=== PATIENT | male | born 1935 | race Asian ===

== ENCOUNTER 2017-08-22 19:34 | Inpatient (IN) | payer MEDICARE ==
[~2017-08-22] VITALS: Ht 160 cm; Wt 56.9 kg
[2017-08-22] MEDS ORDERED: BUDE10.2 INH (20:14)
[2017-08-22] MEDS ORDERED: LISI-167 PO (20:14)
[2017-08-22] MEDS ORDERED: ALBUTEROL/IPRATROPIUM 2.5MG/0.5MG, 3 ML ONE ×2 (20:28→20:43)
[2017-08-22] MEDS ORDERED: SODIUM CHLORIDE FLUSH 10ML SYR IVF ONE (20:30)
[2017-08-22] MEDS ORDERED: ALBUTEROL/IPRATROPIUM 2.5MG/0.5MG, 3 ML NPPB ONE (20:30)
[2017-08-22 20:34] LABS: BASOPHILS # (AUTO) 0.05 x10^3/uL (0-0.1); BASOPHILS % (AUTO) 1 % (0-1); EOSINOPHILS % (AUTO) 3 % (1-7); LYMPHOCYTES # (AUTO) 1.58 x10^3/uL (1-3.4); LYMPHOCYTES % (AUTO) 15 % (22-44); MD NO; MEAN CORPUSCULAR HEMOGLOBIN 29.7 pg (27.5-34.5); MEAN CORPUSCULAR HGB CONC 32.5 g/dL (33.2-36.2); MEAN CORPUSCULAR VOLUME 91.5 fL (81-97); MEAN PLATELET VOLUME 7.9 fL (7.4-10.4); MONOCYTES # (AUTO) 0.73 x10^3/uL (0.2-0.8); MONOCYTES % (AUTO) 7 % (2-9); NEUTROPHILS # (AUTO) 7.78 x10^3/uL (1.8-6.8); NEUTROPHILS % (AUTO) 75 % (42-75); PLATELET COUNT 211 x10^3/uL (130-400); RED BLOOD COUNT 4.79 x10^6/uL (4.38-5.82); RED CELL DISTRIBUTION WIDTH 14.7 % (9.4-14.8)
[2017-08-22 20:45] LABS: ALANINE AMINOTRANSFERASE 24 U/L (12-78); ALBUMIN 3.1 g/dL (3.4-5.0); ANION GAP 10 mmol/L (5-15); CALCIUM 7.8 mg/dL (8.5-10.1); CHLORIDE 107 mmol/L (98-107)
[2017-08-22 20:49] LABS: ALKALINE PHOSPHATASE 80 U/L (45-117); BILIRUBIN,TOTAL 0.7 mg/dL (0.2-1.0); TOTAL PROTEIN 7.4 g/dL (6.4-8.2)
[2017-08-22] MEDS ORDERED: AZITHROMYCIN 500 MG in SODIUM CHLORIDE 0.9% 250 ML IV ONE (21:00)
[2017-08-22] MEDS ORDERED: CEFTRIAXONE PMX 1GM/50ML 50 ML IV ONE (21:00)
[2017-08-22] MEDS ORDERED: CEFTRIAXONE PMX 1GM/50ML 50 ML ONE (21:28)
[2017-08-22] MEDS ORDERED: ACETAMINOPHEN 325 MG TABLET PO PRN (21:30)
[2017-08-22] MEDS ORDERED: CARVEDILOL 6.25 MG TABLET PO ONE (21:30)
[2017-08-22] MEDS ORDERED: ENOXAPARIN 40 MG/0.4 ML SQ SCH (21:30)
[2017-08-22] MEDS ORDERED: ONDANSETRON 2MG/ML, 2ML IVPush PRN (21:30)
[2017-08-23] MEDS: CEFTRIAXONE PMX 1GM/50ML 50 ML IV SCH (00:20)
[2017-08-23] MEDS: SODIUM CHLORIDE 0.9% 1,000 ML IV SCH ×3 (00:20→18:14)
[2017-08-23] MEDS: methylPREDNISolone SOD SUCC 40 MG/ML IVPush SCH ×4 (00:21→19:09)
[2017-08-23] MEDS ORDERED: ALBUTEROL/IPRATROPIUM 2.5MG/0.5MG, 3 ML NPPB PRN (01:00)
[2017-08-23] MEDS: AZITHROMYCIN 500 MG in SODIUM CHLORIDE 0.9% 250 ML IV SCH ×2 (01:28→21:20)
[2017-08-23 01:31] VITALS: BP 102/53
[2017-08-23 05:32] LABS: ANION GAP 7 mmol/L (5-15); CALCIUM 7.6 mg/dL (8.5-10.1); CHLORIDE 108 mmol/L (98-107); CREATININE 1.85 mg/dL (0.7-1.3)
[2017-08-23 05:44] LABS: MEAN CORPUSCULAR HEMOGLOBIN 30.1 pg (27.5-34.5); MEAN CORPUSCULAR HGB CONC 32.9 g/dL (33.2-36.2); MEAN CORPUSCULAR VOLUME 91.6 fL (81-97); MEAN PLATELET VOLUME 7.7 fL (7.4-10.4); PLATELET COUNT 167 x10^3/uL (130-400); RED BLOOD COUNT 4.31 x10^6/uL (4.38-5.82); RED CELL DISTRIBUTION WIDTH 14.8 % (9.4-14.8)
[2017-08-23] MEDS: ASPIRIN 325 MG TABLET EC PO SCH (06:00)
[2017-08-23 06:03] LABS: MD YES
[2017-08-23 06:06] LABS: BAND#(MANUAL) 2.24 x10^3/uL; BANDS%(MANUAL) 20 % (0-7); LYMPH#(MANUAL) 0.34 x10^3/uL (1-3.4); LYMPHS% (MANUAL) 3 % (22-44); SEG#(MANUAL) 8.62 x10^3/uL (1.8-6.8); SEGS% (MANUAL) 77 % (42-75)
[2017-08-23 06:08] LABS: <PLATELET ESTIMATE> ADEQUATE; <PLT MORPHOLOGY> NORMAL PLT MORPH; <RBC MORPHOLOGY> NORMAL
[2017-08-23] MEDS: ALBUTEROL/IPRATROPIUM 2.5MG/0.5MG, 3 ML NPPB SCH ×5 (06:55→22:15)
[2017-08-23 08:02] VITALS: BP 113/63
[2017-08-23 16:09] VITALS: BP 108/62
[2017-08-23 17:31] VITALS: BP 116/52
[2017-08-23 20:16] VITALS: BP 117/64
[2017-08-23] MEDS ORDERED: FUROSEMIDE 20 MG/2 ML IV ONE (23:30)
[2017-08-24] VITALS (8 sets, daily range): BP systolic 112–154; BP diastolic 67–87
[2017-08-24] MEDS: CEFTRIAXONE PMX 1GM/50ML 50 ML IV SCH (00:36)
[2017-08-24] MEDS: ENOXAPARIN 30 MG/0.3 ML SQ SCH (00:40)
[2017-08-24] MEDS: methylPREDNISolone SOD SUCC 40 MG/ML IVPush SCH ×4 (00:40→18:23)
[2017-08-24] MEDS ORDERED: LORazepam 2 MG/ML, 1ML ONE (01:38)
[2017-08-24] MEDS ORDERED: LORazepam 2 MG/ML, 1ML IVPush ONE ×2 (02:00→02:30)
[2017-08-24] MEDS ORDERED: FUROSEMIDE 40 MG/4 ML IV ONE (03:00)
[2017-08-24] MEDS: ALBUTEROL/IPRATROPIUM 2.5MG/0.5MG, 3 ML NPPB SCH ×5 (06:00→22:25)
[2017-08-24] MEDS: ASPIRIN 325 MG TABLET EC PO SCH (09:18)
[2017-08-24 10:08] LABS: RAPID INFLUENZA A Negative (Negative); RAPID INFLUENZA B Negative (Negative)
[2017-08-24 10:37] LABS: BASOPHILS # (AUTO) 0.01 x10^3/uL (0-0.1); BASOPHILS % (AUTO) 0 % (0-1); EOSINOPHILS % (AUTO) 0 % (1-7); LYMPHOCYTES # (AUTO) 0.53 x10^3/uL (1-3.4); LYMPHOCYTES % (AUTO) 4 % (22-44); MD NO; MEAN CORPUSCULAR HEMOGLOBIN 29.8 pg (27.5-34.5); MEAN CORPUSCULAR HGB CONC 32.4 g/dL (33.2-36.2); MEAN CORPUSCULAR VOLUME 91.9 fL (81-97); MONOCYTES # (AUTO) 0.45 x10^3/uL (0.2-0.8); MONOCYTES % (AUTO) 3 % (2-9); NEUTROPHILS # (AUTO) 12.44 x10^3/uL (1.8-6.8); NEUTROPHILS % (AUTO) 93 % (42-75); PLATELET COUNT 176 x10^3/uL (130-400); RED BLOOD COUNT 4.37 x10^6/uL (4.38-5.82); RED CELL DISTRIBUTION WIDTH 14.9 % (9.4-14.8)
[2017-08-24 10:50] LABS: ALANINE AMINOTRANSFERASE 50 U/L (12-78); ALBUMIN 2.8 g/dL (3.4-5.0); ANION GAP 7 mmol/L (5-15); CALCIUM 7.4 mg/dL (8.5-10.1); CHLORIDE 111 mmol/L (98-107); CREATININE 2.41 mg/dL (0.7-1.3)
[2017-08-24 10:52] LABS: ALKALINE PHOSPHATASE 91 U/L (45-117); BILIRUBIN,TOTAL 0.3 mg/dL (0.2-1.0); TOTAL PROTEIN 6.6 g/dL (6.4-8.2)
[2017-08-24] MEDS: GUAIFENESIN 200 MG TABLET PO SCH ×3 (12:24→20:38)
[2017-08-24] MEDS ORDERED: SODIUM CHLORIDE 0.9% 1,000 ML IV SCH (12:30)
[2017-08-24] MEDS ORDERED: FUROSEMIDE 20 MG/2 ML IV ONE (17:00)
[2017-08-24] MEDS: AZITHROMYCIN 500 MG in SODIUM CHLORIDE 0.9% 250 ML IV SCH (20:38)
[2017-08-25] MEDS: ENOXAPARIN 30 MG/0.3 ML SQ SCH (00:38)
[2017-08-25] MEDS: methylPREDNISolone SOD SUCC 40 MG/ML IVPush SCH ×4 (00:38→17:35)
[2017-08-25] MEDS: CEFTRIAXONE PMX 1GM/50ML 50 ML IV SCH (00:50)
[2017-08-25 01:46] VITALS: BP 116/69
[2017-08-25] MEDS: ALBUTEROL/IPRATROPIUM 2.5MG/0.5MG, 3 ML NPPB SCH ×4 (06:00→18:55)
[2017-08-25 06:32] LABS: ANION GAP 6 mmol/L (5-15); CALCIUM 7.7 mg/dL (8.5-10.1); CHLORIDE 110 mmol/L (98-107); CREATININE 2.42 mg/dL (0.7-1.3)
[2017-08-25 06:45] VITALS: BP 117/74
[2017-08-25] MEDS: GUAIFENESIN 200 MG TABLET PO SCH ×3 (09:04→20:29)
[2017-08-25] MEDS: ASPIRIN 325 MG TABLET EC PO SCH (09:04)
[2017-08-25] MEDS ORDERED: FUROSEMIDE 40 MG/4 ML IV ONE ×2 (11:30→14:00)
[2017-08-25 12:25] VITALS: BP 137/60
[2017-08-25 13:59] LABS: MICROSCOPIC INDICATED
[2017-08-25 14:10] LABS: CULTURE INDICATED? NO
[2017-08-25] MEDS: CARVEDILOL 3.125 MG TABLET PO SCH (17:35)
[2017-08-25] MEDS: AZITHROMYCIN 500 MG in SODIUM CHLORIDE 0.9% 250 ML IV SCH (20:28)
[2017-08-25] MEDS: GUAIFENESIN/DM 200-20MG, 10ML UDC PO PRN (20:29)
[2017-08-25] MEDS: TEMAZEPAM 15 MG CAPSULE PO PRN (20:29)
[2017-08-25 20:50] VITALS: BP 108/67
[2017-08-25] MEDS: ATORVASTATIN 20 MG TABLET PO SCH (22:30)
[2017-08-26] MEDS: methylPREDNISolone SOD SUCC 40 MG/ML IVPush SCH ×4 (00:09→17:41)
[2017-08-26] MEDS: ENOXAPARIN 30 MG/0.3 ML SQ SCH (00:09)
[2017-08-26] MEDS: CEFTRIAXONE PMX 1GM/50ML 50 ML IV SCH (00:09)
[2017-08-26 00:17] VITALS: BP 114/66
[2017-08-26 05:36] LABS: MEAN CORPUSCULAR HEMOGLOBIN 29.8 pg (27.5-34.5); MEAN CORPUSCULAR HGB CONC 32.5 g/dL (33.2-36.2); MEAN CORPUSCULAR VOLUME 91.6 fL (81-97); MEAN PLATELET VOLUME 8.1 fL (7.4-10.4); PLATELET COUNT 190 x10^3/uL (130-400); RED BLOOD COUNT 4.27 x10^6/uL (4.38-5.82); RED CELL DISTRIBUTION WIDTH 14.9 % (9.4-14.8)
[2017-08-26 05:38] LABS: CHLORIDE 109 mmol/L (98-107)
[2017-08-26 05:43] LABS: ALANINE AMINOTRANSFERASE 58 U/L (12-78); ALBUMIN 2.9 g/dL (3.4-5.0); ALKALINE PHOSPHATASE 77 U/L (45-117); ANION GAP 7 mmol/L (5-15); BILIRUBIN,TOTAL 0.4 mg/dL (0.2-1.0); CALCIUM 7.4 mg/dL (8.5-10.1); CREATININE 2.38 mg/dL (0.7-1.3); TOTAL PROTEIN 6.6 g/dL (6.4-8.2)
[2017-08-26] MEDS: CARVEDILOL 3.125 MG TABLET PO SCH ×2 (05:54→17:41)
[2017-08-26] MEDS: ASPIRIN 325 MG TABLET EC PO SCH (05:54)
[2017-08-26 05:57] LABS: BASOPHILS % (AUTO) 0 % (0-1); EOSINOPHILS % (AUTO) 0 % (1-7); LYMPHOCYTES # (AUTO) 0.28 x10^3/uL (1-3.4); LYMPHOCYTES % (AUTO) 2 % (22-44); MD SCAN; MONOCYTES # (AUTO) 0.32 x10^3/uL (0.2-0.8); MONOCYTES % (AUTO) 3 % (2-9); NEUTROPHILS # (AUTO) 10.91 x10^3/uL (1.8-6.8); NEUTROPHILS % (AUTO) 95 % (42-75)
[2017-08-26] MEDS: FUROSEMIDE 20 MG TABLET PO SCH ×3 (06:04→15:51)
[2017-08-26] MEDS: ALBUTEROL/IPRATROPIUM 2.5MG/0.5MG, 3 ML NPPB SCH ×4 (07:00→19:10)
[2017-08-26 07:06] VITALS: BP 111/74
[2017-08-26] MEDS: GUAIFENESIN 200 MG TABLET PO SCH ×3 (08:08→20:31)
[2017-08-26 13:32] VITALS: BP 117/72
[2017-08-26 18:35] VITALS: BP 128/70
[2017-08-26] MEDS: AZITHROMYCIN 500 MG in SODIUM CHLORIDE 0.9% 250 ML IV SCH (20:30)
[2017-08-26] MEDS: TEMAZEPAM 15 MG CAPSULE PO PRN ×2 (20:31→22:19)
[2017-08-26] MEDS: ATORVASTATIN 20 MG TABLET PO SCH (20:31)
[2017-08-27] MEDS: methylPREDNISolone SOD SUCC 40 MG/ML IVPush SCH ×4 (00:12→17:26)
[2017-08-27] MEDS: ENOXAPARIN 30 MG/0.3 ML SQ SCH (00:12)
[2017-08-27] MEDS: CEFTRIAXONE 1,000 MG in DEXTROSE 5% 50 ML IV SCH (00:12)
[2017-08-27 01:06] VITALS: BP 130/62
[2017-08-27 05:48] LABS: BASOPHILS # (AUTO) 0.01 x10^3/uL (0-0.1); BASOPHILS % (AUTO) 0 % (0-1); EOSINOPHILS % (AUTO) 0 % (1-7); LYMPHOCYTES # (AUTO) 0.31 x10^3/uL (1-3.4); LYMPHOCYTES % (AUTO) 3 % (22-44); MD NO; MEAN CORPUSCULAR HEMOGLOBIN 29.8 pg (27.5-34.5); MEAN CORPUSCULAR HGB CONC 32.9 g/dL (33.2-36.2); MEAN CORPUSCULAR VOLUME 90.7 fL (81-97); MONOCYTES # (AUTO) 0.36 x10^3/uL (0.2-0.8); MONOCYTES % (AUTO) 4 % (2-9); NEUTROPHILS # (AUTO) 8.56 x10^3/uL (1.8-6.8); NEUTROPHILS % (AUTO) 93 % (42-75); PLATELET COUNT 217 x10^3/uL (130-400); RED BLOOD COUNT 4.48 x10^6/uL (4.38-5.82); RED CELL DISTRIBUTION WIDTH 14.6 % (9.4-14.8)
[2017-08-27] MEDS: CARVEDILOL 3.125 MG TABLET PO SCH ×2 (05:51→17:26)
[2017-08-27] MEDS: ASPIRIN 325 MG TABLET EC PO SCH (05:52)
[2017-08-27 06:03] LABS: CHLORIDE 108 mmol/L (98-107)
[2017-08-27 06:11] LABS: ALANINE AMINOTRANSFERASE 60 U/L (12-78); ALBUMIN 2.7 g/dL (3.4-5.0); ALKALINE PHOSPHATASE 70 U/L (45-117); ANION GAP 8 mmol/L (5-15); BILIRUBIN,TOTAL 0.5 mg/dL (0.2-1.0); TOTAL PROTEIN 6.2 g/dL (6.4-8.2)
[2017-08-27 06:49] VITALS: BP 144/61
[2017-08-27] MEDS: ALBUTEROL/IPRATROPIUM 2.5MG/0.5MG, 3 ML NPPB SCH ×4 (07:00→19:19)
[2017-08-27] MEDS: GUAIFENESIN 200 MG TABLET PO SCH ×3 (08:17→21:19)
[2017-08-27] MEDS: FUROSEMIDE 20 MG TABLET PO SCH ×2 (08:17→17:26)
[2017-08-27 14:00] VITALS: BP 134/79
[2017-08-27 18:40] VITALS: BP 141/83
[2017-08-27] MEDS: ATORVASTATIN 20 MG TABLET PO SCH (21:19)
[2017-08-27] MEDS: AZITHROMYCIN 500 MG in SODIUM CHLORIDE 0.9% 250 ML IV SCH (21:20)
[2017-08-28] MEDS: ENOXAPARIN 30 MG/0.3 ML SQ SCH
[2017-08-28] MEDS: CEFTRIAXONE 1,000 MG in DEXTROSE 5% 50 ML IV SCH (00:47)
[2017-08-28] MEDS: methylPREDNISolone SOD SUCC 40 MG/ML IVPush SCH ×4 (00:47→17:15)
[2017-08-28 02:00] VITALS: BP 136/81
[2017-08-28 05:39] LABS: BASOPHILS % (AUTO) 0 % (0-1); EOSINOPHILS % (AUTO) 0 % (1-7); LYMPHOCYTES # (AUTO) 0.32 x10^3/uL (1-3.4); LYMPHOCYTES % (AUTO) 3 % (22-44); MD NO; MEAN CORPUSCULAR HGB CONC 32.9 g/dL (33.2-36.2); MEAN CORPUSCULAR VOLUME 91.1 fL (81-97); MEAN PLATELET VOLUME 7.9 fL (7.4-10.4); MONOCYTES # (AUTO) 0.33 x10^3/uL (0.2-0.8); MONOCYTES % (AUTO) 3 % (2-9); NEUTROPHILS # (AUTO) 10.24 x10^3/uL (1.8-6.8); NEUTROPHILS % (AUTO) 94 % (42-75); PLATELET COUNT 222 x10^3/uL (130-400); RED BLOOD COUNT 4.41 x10^6/uL (4.38-5.82); RED CELL DISTRIBUTION WIDTH 14.6 % (9.4-14.8)
[2017-08-28] MEDS: ASPIRIN 325 MG TABLET EC PO SCH (05:51)
[2017-08-28] MEDS: CARVEDILOL 3.125 MG TABLET PO SCH ×2 (05:51→17:15)
[2017-08-28 06:29] LABS: ALANINE AMINOTRANSFERASE 47 U/L (12-78); ALBUMIN 2.5 g/dL (3.4-5.0); ANION GAP 7 mmol/L (5-15); CALCIUM 7.6 mg/dL (8.5-10.1); CHLORIDE 106 mmol/L (98-107); CREATININE 2.13 mg/dL (0.7-1.3)
[2017-08-28 06:37] LABS: ALKALINE PHOSPHATASE 62 U/L (45-117); BILIRUBIN,TOTAL 0.3 mg/dL (0.2-1.0); TOTAL PROTEIN 5.9 g/dL (6.4-8.2)
[2017-08-28] MEDS: ALBUTEROL/IPRATROPIUM 2.5MG/0.5MG, 3 ML NPPB SCH ×4 (07:00→19:14)
[2017-08-28] MEDS: GUAIFENESIN 200 MG TABLET PO SCH ×3 (07:27→21:00)
[2017-08-28] MEDS: FUROSEMIDE 20 MG TABLET PO SCH ×2 (07:27→17:16)
[2017-08-28 07:28] VITALS: BP 123/63
[2017-08-28] MEDS: CALCITRIOL 0.25 MCG CAPSULE PO SCH (11:50)
[2017-08-28] MEDS: ALLOPURINOL 100 MG TABLET PO SCH (11:50)
[2017-08-28] MEDS ORDERED: ERGOCALCIFEROL 50,000 UNIT CAPSULE PO SCH (12:00)
[2017-08-28 14:56] VITALS: BP 137/69
[2017-08-28 19:56] VITALS: BP 131/63
[2017-08-28] MEDS: ATORVASTATIN 20 MG TABLET PO SCH (21:00)
[2017-08-28] MEDS: AZITHROMYCIN 500 MG in SODIUM CHLORIDE 0.9% 250 ML IV SCH (21:00)
[2017-08-29] MEDS: ENOXAPARIN 30 MG/0.3 ML SQ SCH
[2017-08-29] MEDS: methylPREDNISolone SOD SUCC 40 MG/ML IVPush SCH ×4 (01:25→18:15)
[2017-08-29] MEDS: CEFTRIAXONE 1,000 MG in DEXTROSE 5% 50 ML IV SCH (01:26)
[2017-08-29 01:57] VITALS: BP 122/57
[2017-08-29] MEDS: ALBUTEROL/IPRATROPIUM 2.5MG/0.5MG, 3 ML NPPB SCH ×4 (07:35→19:28)
[2017-08-29 07:54] VITALS: BP 148/74
[2017-08-29] MEDS ORDERED: REGADENOSON 0.4 MG/5 ML SYRINGE ONE (08:52)
[2017-08-29] MEDS: ALLOPURINOL 100 MG TABLET PO SCH (11:50)
[2017-08-29] MEDS: CALCITRIOL 0.25 MCG CAPSULE PO SCH (11:50)
[2017-08-29] MEDS: GUAIFENESIN 200 MG TABLET PO SCH ×3 (11:51→21:04)
[2017-08-29] MEDS: ASPIRIN 325 MG TABLET EC PO SCH (11:51)
[2017-08-29] MEDS: FUROSEMIDE 20 MG TABLET PO SCH ×2 (11:51→16:22)
[2017-08-29 12:25] LABS: ANION GAP 10 mmol/L (5-15); CALCIUM 7.4 mg/dL (8.5-10.1); CHLORIDE 99 mmol/L (98-107); CREATININE 2.11 mg/dL (0.7-1.3)
[2017-08-29 13:46] VITALS: BP 136/69
[2017-08-29] MEDS: CARVEDILOL 6.25 MG TABLET PO SCH (18:15)
[2017-08-29 18:56] VITALS: BP 126/64
[2017-08-29] MEDS: ATORVASTATIN 20 MG TABLET PO SCH (21:04)
[2017-08-29] MEDS: TEMAZEPAM 15 MG CAPSULE PO PRN (21:04)
[2017-08-29] MEDS: AZITHROMYCIN 500 MG in SODIUM CHLORIDE 0.9% 250 ML IV SCH (21:04)
[2017-08-30] MEDS: ENOXAPARIN 30 MG/0.3 ML SQ SCH
[2017-08-30] MEDS: methylPREDNISolone SOD SUCC 40 MG/ML IVPush SCH ×4 (00:12→17:42)
[2017-08-30] MEDS: CEFTRIAXONE 1,000 MG in SODIUM CHLORIDE 0.9% 50 ML IV SCH (00:40)
[2017-08-30 02:00] VITALS: BP 120/70
[2017-08-30 05:11] LABS: ANION GAP 5 mmol/L (5-15); CALCIUM 7.6 mg/dL (8.5-10.1); CHLORIDE 97 mmol/L (98-107); CREATININE 2.04 mg/dL (0.7-1.3)
[2017-08-30 05:14] LABS: MEAN CORPUSCULAR HEMOGLOBIN 30.2 pg (27.5-34.5); MEAN CORPUSCULAR HGB CONC 33.4 g/dL (33.2-36.2); MEAN CORPUSCULAR VOLUME 90.4 fL (81-97); PLATELET COUNT 230 x10^3/uL (130-400); RED BLOOD COUNT 4.74 x10^6/uL (4.38-5.82); RED CELL DISTRIBUTION WIDTH 14.2 % (9.4-14.8)
[2017-08-30 05:39] LABS: BASOPHILS % (AUTO) 0 % (0-1); EOSINOPHILS % (AUTO) 0 % (1-7); LYMPHOCYTES # (AUTO) 0.45 x10^3/uL (1-3.4); LYMPHOCYTES % (AUTO) 4 % (22-44); MD SCAN; MONOCYTES # (AUTO) 0.22 x10^3/uL (0.2-0.8); MONOCYTES % (AUTO) 2 % (2-9); NEUTROPHILS # (AUTO) 11.52 x10^3/uL (1.8-6.8); NEUTROPHILS % (AUTO) 95 % (42-75)
[2017-08-30] MEDS: CARVEDILOL 6.25 MG TABLET PO SCH ×2 (05:53→17:43)
[2017-08-30] MEDS: ASPIRIN 325 MG TABLET EC PO SCH (05:53)
[2017-08-30] MEDS: ALBUTEROL/IPRATROPIUM 2.5MG/0.5MG, 3 ML NPPB SCH ×4 (07:18→20:05)
[2017-08-30 07:43] VITALS: BP 124/71
[2017-08-30] MEDS: ALLOPURINOL 100 MG TABLET PO SCH (08:25)
[2017-08-30] MEDS: GUAIFENESIN 200 MG TABLET PO SCH ×3 (08:25→21:44)
[2017-08-30] MEDS: CALCITRIOL 0.25 MCG CAPSULE PO SCH (08:25)
[2017-08-30] MEDS: FUROSEMIDE 20 MG TABLET PO SCH (08:26)
[2017-08-30] MEDS: ISOSORBIDE MONONITRATE ER 30 MG TABLET PO SCH (09:59)
[2017-08-30] MEDS: TICAGRELOR 90 MG TABLET PO SCH ×2 (09:59→22:04)
[2017-08-30 13:58] VITALS: BP 137/65
[2017-08-30 20:00] VITALS: BP 121/67
[2017-08-30] MEDS: ATORVASTATIN 20 MG TABLET PO SCH (21:44)
[2017-08-30] MEDS: TEMAZEPAM 15 MG CAPSULE PO PRN (21:44)
[2017-08-30] MEDS: AZITHROMYCIN 500 MG in SODIUM CHLORIDE 0.9% 250 ML IV SCH (21:44)
[2017-08-30] MEDS ORDERED: BISACODYL 10 MG SUPP PR PRN (22:30)
[2017-08-31] MEDS: ENOXAPARIN 30 MG/0.3 ML SQ SCH
[2017-08-31] MEDS: DOCUSATE 100 MG CAPSULE PO SCH ×2 (00:22→07:56)
[2017-08-31] MEDS: methylPREDNISolone SOD SUCC 40 MG/ML IVPush SCH ×3 (00:22→12:20)
[2017-08-31] MEDS: CEFTRIAXONE 1,000 MG in SODIUM CHLORIDE 0.9% 50 ML IV SCH (00:23)
[2017-08-31 02:00] VITALS: BP 136/67
[2017-08-31] MEDS: CARVEDILOL 6.25 MG TABLET PO SCH (05:07)
[2017-08-31 05:08] VITALS: BP 138/71
[2017-08-31] MEDS ORDERED: ASPIRIN 81 MG TABLET EC PO SCH (06:00)
[2017-08-31 06:05] LABS: CHLORIDE 96 mmol/L (98-107)
[2017-08-31 06:12] LABS: ANION GAP 10 mmol/L (5-15); CALCIUM 7.6 mg/dL (8.5-10.1); CREATININE 1.99 mg/dL (0.7-1.3)
[2017-08-31] MEDS: ALBUTEROL/IPRATROPIUM 2.5MG/0.5MG, 3 ML NPPB SCH ×2 (07:00→11:00)
[2017-08-31 07:43] VITALS: BP 144/66
[2017-08-31] MEDS: CALCITRIOL 0.25 MCG CAPSULE PO SCH (07:55)
[2017-08-31] MEDS: GUAIFENESIN 200 MG TABLET PO SCH ×2 (07:55→14:53)
[2017-08-31] MEDS: ALLOPURINOL 100 MG TABLET PO SCH (07:55)
[2017-08-31] MEDS: ISOSORBIDE MONONITRATE ER 30 MG TABLET PO SCH (07:56)
[2017-08-31] MEDS: TICAGRELOR 90 MG TABLET PO SCH (07:56)
[2017-08-31] MEDS ORDERED: POLYETHYLENE GLYCOL 17 GM PACKET PO SCH (09:00)
[2017-08-31] MEDS ORDERED: ERGO500017 PO (09:36)
[2017-08-31] MEDS ORDERED: HYDR-3341 PO (09:36)
[2017-08-31] MEDS ORDERED: GUAI200T3 PO (09:36)
[2017-08-31] MEDS ORDERED: PRED5TAB PO (09:36)
[2017-08-31] MEDS ORDERED: TICA90TA PO (09:36)
[2017-08-31] MEDS ORDERED: CARV6.2512 PO (09:36)
[2017-08-31] MEDS ORDERED: CALC0.25 PO (09:36)
[2017-08-31] MEDS ORDERED: ISOS30TA8 PO (09:36)
[2017-08-31] MEDS ORDERED: ASPI-621 PO (09:36)
[2017-08-31] MEDS ORDERED: ALLO100T30 PO (09:36)
[2017-08-31] MEDS ORDERED: ATOR20TA9 PO (09:36)
[2017-08-31] MEDS ORDERED: FURO-92 PO (09:40)
[2017-08-31] MEDS ORDERED: POTA20TA89 PO (09:40)
[2017-08-31] MEDS ORDERED: POTASSIUM CHLORIDE 10% 40 MEQ/30 ML UDC PO ONE (10:00)
[2017-08-31 12:00] VITALS: BP 148/80
[2017-08-31] MEDS: GUAIFENESIN/DM 200-20MG, 10ML UDC PO PRN (14:53)
== END 2017-08-31 16:40 | disposition home or self-care (01) | DRG 871 ==
LOC: ED 21:36 → EDIP 21:57 → 4WST 23:17 → DCLOUNGE 08-31 16:15
PROVIDERS: ADMIT Internal Medicine; ATTEND Family Medicine
DX: A41.9 Sepsis, unspecified organism (principal); J15.9 Unspecified bacterial pneumonia; J96.21 Acute and chronic respiratory failure with hypoxia; N17.0 Acute kidney failure with tubular necrosis; I50.33 Acute on chronic diastolic (congestive) heart failure; E87.3 Alkalosis; I24.8 Other forms of acute ischemic heart disease; I11.0 Hypertensive heart disease with heart failure; E44.1 Mild protein-calorie malnutrition; I42.9 Cardiomyopathy, unspecified; I35.8 Other nonrheumatic aortic valve disorders; J43.9 Emphysema, unspecified; I27.20 Pulmonary hypertension, unspecified; E83.51 Hypocalcemia; D64.9 Anemia, unspecified; E87.6 Hypokalemia; I25.2 Old myocardial infarction; Z87.891 Personal history of nicotine dependence; Z99.81 Dependence on supplemental oxygen; Z79.899 Other long term (current) drug therapy; Z79.82 Long term (current) use of aspirin; Z68.22 Body mass index [BMI] 22.0-22.9, adult
CPT/HCPCS: 36415; 71045; 76770; 78452; 80048; 80053; 81001; 82306; 82436; 82570; 83605; 83735; 83880; 83935; 83970; 84100; 84133; 84145; 84155; 84156; 84165; 84300; 84484; 84550; 85025; 86160; 86162; 86256; 87040; 87400; 93005; 93017; 93306; 94640; 96365; J0456; J0696; J1650; J1940; J2785; J7620; A9502; C9898; J2060; J2920; J7030; J7050; J7512

== ENCOUNTER 2017-09-14 23:21 | Emergency (ER) | payer MEDICARE ==
[~2017-09-14] VITALS: Ht 162.6 cm; Wt 55.7 kg
[~2017-09-14 23:21] MED LIST: ALLO100T30 PO; ASPI-621 PO; ATOR20TA9 PO; BUDE10.2 INH; CALC0.25 PO; CARV6.2512 PO; ERGO500017 PO; FURO-92 PO; GUAI200T3 PO; HYDR-3341 PO; ISOS30TA8 PO; LISI-167 PO; POTA20TA89 PO; PRED5TAB PO; TICA90TA PO
[2017-09-15] MEDS ORDERED: SILVER NITRATE STICK TP ONE (00:04)
[2017-09-15 00:05] VITALS: BP 137/50
== END 2017-09-15 01:07 ==
LOC: ED 23:59
DX: R04.0 Epistaxis (principal); J44.9 Chronic obstructive pulmonary disease, unspecified; I11.0 Hypertensive heart disease with heart failure; I50.9 Heart failure, unspecified
CPT/HCPCS: 30901; 99284